=== PATIENT | male | born 1970 | race Caucasian/White ===

== ENCOUNTER → 2021-02-17 | Emergency (ER) | payer OTHER ==
[~2021-02-17] MED LIST: ALBUTEROL0.63 MG/3 INH; ASPIRIN CHEWABL81 MG PO; BENZONATATE100 MG PO; CEFUROXIME500 MG PO; COREG 3.125M3.125 MG PO; LIPITOR TAB 2020 MG PO; LISINOPRIL10 MG PO; LOPRESSOR 25 MG25 MG PO; LORTAB ELIXIR 715 ML PO; NEXIUM40 MG PO; ZANTAC300 MG PO
[2021-02-17 15:09] LABS: HEMOGLOBIN 9.4 gm/dl (14.0-17.5); RED BLOOD COUNT 5.14 M/UL (4.20-5.50); WHITE BLOOD COUNT 10.8 K/UL (4.5-11.0)
[2021-02-17 15:33] LABS: BUN/CREATININE RATIO 12 (0-10)
== END | disposition home or self-care (01) ==
LOC: ER1 14:39
PROVIDERS: Nurse Practitioner
DX: R06.02 Shortness of breath (principal); D64.9 Anemia, unspecified; R05.9 Cough, unspecified; E11.9 Type 2 diabetes mellitus without complications; J44.9 Chronic obstructive pulmonary disease, unspecified; I25.10 Atherosclerotic heart disease of native coronary artery without angina pectoris; I10 Essential (primary) hypertension; I25.2 Old myocardial infarction; F17.210 Nicotine dependence, cigarettes, uncomplicated; Z20.822 Contact with and (suspected) exposure to COVID-19; F17.200 Nicotine dependence, unspecified, uncomplicated; E78.5 Hyperlipidemia, unspecified
CPT/HCPCS: 71046; 80053; 82550; 82553; 83735; 83874; 84484; 85025; 93005; 99285; U0002